=== PATIENT | female | born 1970 | race Caucasian/White ===

== ENCOUNTER → 2018-03-12 | Outpatient (CLI) | payer BC ==
--- NOTE | 2018-03-12 13:39 | RAD ---
Bilateral lower extremity venous ultrasound, 03/12/2018: History: Bilateral leg swelling Duplex evaluation of the deep veins in the lower extremities was performed including grayscale, color-flow and spectral Doppler analysis. The femoral and popliteal veins demonstrate normal compressibility and normal responses to distal augmentation maneuvers. Color imaging of those vessels shows no evidence of intraluminal clot. The visualized deep veins in both calves are patent. IMPRESSION: There is no sonographic evidence of deep vein thrombosis in either lower extremity.
== END | disposition home or self-care (01) ==
LOC: US 12:11
PROVIDERS: ATTEND Nurse Practitioner Family
DX: M79.89 Other specified soft tissue disorders (principal)
CPT/HCPCS: 93970

== ENCOUNTER → 2018-03-25 | Outpatient (CLI) | payer BC ==
--- NOTE | 2018-03-25 10:05 | RAD ---
Right tibia and fibula, 2 views, 03/25/2018: History: Pain after a fall No fracture is identified. There is moderate subcutaneous edema. IMPRESSION: No acute bony abnormality is detected.
== END | disposition home or self-care (01) ==
LOC: PMG 09:02
PROVIDERS: ATTEND Physician Assistant
DX: M79.604 Pain in right leg (principal); R60.0 Localized edema
CPT/HCPCS: 73590

== ENCOUNTER 2019-11-23 15:19 | Emergency (ER) | payer BC ==
[~2019-11-23] VITALS: Ht 167.6 cm; Wt 149.7 kg
[2019-11-23 15:40] VITALS: BP 158/86
--- NOTE | 2019-11-23 16:12 | PHYS DOC ---
Past History Past Medical History: High Cholesterol, Hypertension, Other Additional Past Medical Histor: osteo-Lizzie imperfecta Past Surgical History: Cholecystectomy, Hysterectomy, Tonsillectomy Smoking: Non-smoker Alcohol Use: None Drug Use: None Adult General Chief Complaint Chief Complaint: KNEE INJURY HPI HPI Patient is a 49-year-old female presents complaining of worsening left knee pain since yesterday when she was walking, felt a pop, and had increased pain. She has been having left knee pain for approximately the past 2 months. She has taken no pain medicine for this. She denies any trauma. She does have a history of osteogenesis imperfecta. She has been able to walk with increased pain. Pain is moderate to severe in intensity. No numbness or tingling. No swelling.[] Review of Systems Review of Systems Constitutional: Denies fever or chills [] Eyes: Denies change in visual acuity, redness, or eye pain [] HENT: Denies nasal congestion or sore throat [] Respiratory: Denies cough or shortness of breath [] Cardiovascular: No chest pain or palpitations[] GI: Denies abdominal pain, nausea, vomiting, bloody stools or diarrhea [] : Denies dysuria or hematuria [] Musculoskeletal: Denies back pain, see history of present illness[] Integument: Denies rash or skin lesions [] Neurologic: Denies headache, focal weakness or sensory changes [] Endocrine: Denies polyuria or polydipsia [] All other systems were reviewed and found to be within normal limits, except as documented in this note. Allergies Allergies Allergies Coded Allergies Type Severity Reaction Last Updated Verified Iodinated Contrast Media Allergy Unknown 11/23/19 Yes oseltamivir Allergy Unknown 11/23/19 Yes Physical Exam Physical Exam Constitutional: Well developed, well nourished, no acute distress, non-toxic appearance. [] HENT: Normocephalic, atraumatic, bilateral external ears normal, oropharynx moist, no oral exudates, nose normal. [] Eyes: PERRLA, EOMI, conjunctiva normal, no discharge. [] Neck: Normal range of motion, no tenderness, supple, no stridor. [] Cardiovascular:Heart rate regular rhythm, no murmur [] Lungs & Thorax: Bilateral breath sounds clear to auscultation [] Abdomen: Bowel sounds normal, soft, no tenderness, no masses, no pulsatile masses. [] Skin: Warm, dry, no erythema, no rash. [] Back: No tenderness, no CVA tenderness. [] Extremities: Left knee: There is no significant edema or effusion. Decreased active range of motion from full extension to approximately 90 of flexion, no varus or valgus laxity, diffuse tenderness, no specific joint line tenderness. Negative Francesca, negative anterior and posterior drawer, negative pivot shift, no patellar apprehension. A joint above and a joined below were evaluated and were normal. She is distally neurovascularly intact. The other 3 extremities show: No tenderness, no cyanosis, no clubbing, ROM intact, no edema. [] Neurologic: Alert and oriented X 3, normal motor function, normal sensory function, no focal deficits noted. [] Psychologic: Affect normal, judgement normal, mood normal. [] EKG EKG [] Radiology/Procedures Radiology/Procedures PROCEDURE: KNEE LEFT 3V EXAM: Left knee, 3 views. HISTORY: Pain. Popping. COMPARISON: None. FINDINGS: 3 views of the right knee are obtained. There is minimal medial compartment spurring. There is a small joint effusion. IMPRESSION: 1. Minimal medial compartment osteoarthritis of the left knee. 2. Small left knee effusion.[] Course & Med Decision Making Course & Med Decision Making Pertinent Labs and Imaging studies reviewed. (See chart for details) Emergency department course: Patient arrived, was placed in bed, and tolerated exam well. She was given pain medicine and transported to and from radiology with any complications. After the return of the imaging findings, these were discussed with the patient voiced understanding. All questions were answered. She was discharged in improved condition. Medical decision making: There is no evidence of a fracture or dislocation. No evidence of neurologic or vascular compromise. No evidence of a DVT. [] Dragon Disclaimer Dragon Disclaimer This electronic medical record was generated, in whole or in part, using a voice recognition dictation system. Departure Departure: Impression: Primary Impression: Knee pain, left Disposition: 01 HOME, SELF-CARE Condition: IMPROVED Referrals: MERCEDEZ CONNELLY (PCP) Follow-up in 2 days Patient Instructions: Knee Pain Additional Instructions: Follow-up with your regular doctor in 2 days. Apply warm compresses for 15 minutes at a time, at least 4 times a day to the knee. Return to the ER if worsening pain or any other concerns. Scripts Meloxicam (MELOXICAM) 7.5 Mg Tablet 7.5 MG PO DAILY for PAIN, #20 TAB Prov: STANLEY GUTIERRES DO 11/23/19 Problem Qualifiers Primary Impression: Knee pain, left Chronicity: unspecified Qualified Codes: M25.562 - Pain in left knee STANLEY GUTIERRES DO Nov 23, 2019 16:12
[2019-11-23] MEDS ORDERED: IBUPROFEN 600 MG TABLET. PO ONE (16:15)
--- NOTE | 2019-11-23 16:35 | RAD ---
EXAM: Left knee, 3 views. HISTORY: Pain. Popping. COMPARISON: None. FINDINGS: 3 views of the right knee are obtained. There is minimal medial compartment spurring. There is a small joint effusion. IMPRESSION: 1. Minimal medial compartment osteoarthritis of the left knee. 2. Small left knee effusion. Electronically signed by: Luz Elena Barros MD (11/23/2019 4:32 PM) [facility]
[2019-11-23] MEDS ORDERED: MELO7.5T29 PO (16:41)
== END 2019-11-23 16:50 | disposition home or self-care (01) ==
LOC: ER 15:19
DX: M25.562 Pain in left knee (principal); E78.00 Pure hypercholesterolemia, unspecified; I10 Essential (primary) hypertension; Z91.041 Radiographic dye allergy status; Z88.8 Allergy status to other drugs, medicaments and biological substances; X50.9XXA Other and unspecified overexertion or strenuous movements or postures, initial encounter; Y93.01 Activity, walking, marching and hiking; Y92.89 Other specified places as the place of occurrence of the external cause; Y99.8 Other external cause status
CPT/HCPCS: 73562; 99284

== ENCOUNTER 2020-06-23 18:36 | Emergency (ER) | payer BC ==
[~2020-06-23] VITALS: Ht 167.6 cm; Wt 162.4 kg
[~2020-06-23 18:36] MED LIST: MELO7.5T29 PO
[2020-06-23 18:45] VITALS: BP 156/68
--- NOTE | 2020-06-23 19:29 | RAD ---
EXAM: Right foot 2 views. HISTORY: First toe trauma. COMPARISON: None. FINDINGS: Two views of the right foot are obtained. There is an avulsion fracture along the dorsal base of the first distal phalanx. Other joint spaces and alignment are maintained. There are moderate plantar and small posterior calcaneal spurs. IMPRESSION: 1. Avulsion fracture along the dorsal base of the first distal phalanx. Electronically signed by: Merline Alberto MD (06/23/2020 7:26 PM) [facility]
[2020-06-23] MEDS ORDERED: DIPH,PERTUSS(ACELL),TET VAC/PF 0.5 ML SYRINGE. VAX IM ONE (19:30)
--- NOTE | 2020-06-23 19:31 | PHYS DOC ---
Past History Past Medical History: Diabetes, High Cholesterol, Hypertension, Other Additional Past Medical Histor: osteo-Lizzie imperfecta Past Surgical History: Cholecystectomy, Hysterectomy, Tonsillectomy Smoking: Non-smoker Alcohol Use: None Drug Use: None Adult General Chief Complaint Chief Complaint: TOE PROBLEM HPI HPI Patient is a 42 year old female who presents with right big toe pain. Patient states that last night her toe went under a piece of furniture and she immediately had pain and swelling of the toe. She states that the pain is only significant if she tries to drive or put any weight on it. She denies any other injuries. She did have some bleeding on the bottom of the toenail. She states her toenail has been curved for several years and that it does not appear to look any different than normal. She denies any numbness. Review of Systems Review of Systems General: Denies fever, chills, sweats, fatigue Eyes: Denies drainage, blurred vision, eye redness HENT: Denies rhinorrhea, sore throat, earache Respiratory: Denies cough, shortness of breath, wheezing Cardiac: Denies edema, palpitations, chest pain GI: Denies abdominal pain, Nausea, vomiting MSK: Denies back pain, neck pain Skin: Denies rash, jaundice Neuro: Denies headache, dizziness Psychiatric: Denies SI/HI Current Medications Current Medications Current Medications Medications (Trade) Dose Ordered Sig/Nichole Start Time Stop Time Status Last Admin Dose Admin Diphtheria/ Pertussis/Tetanus Vacc (ADACEL TDap SYRINGE) 0.5 ml ONCE ONCE 06/23/20 19:30 06/23/20 19:31 06/23/20 19:16 0.5 ML Allergies Allergies Allergies Coded Allergies Type Severity Reaction Last Updated Verified Iodinated Contrast Media Allergy Intermediate 06/23/20 Yes oseltamivir Allergy Intermediate 06/23/20 Yes Physical Exam Physical Exam General: Awake, alert, NAD. Well Nourished, well hydrated. Cooperative HEENT: Atraumatic, EOMI, PERRL, airway patent, moist oral mucosa Neck: Supple, trachea midline Respiratory: CTA bilaterally, normal effort, no wheezing/crackles CV: RRR, no murmur, cap refill <2 GI: Soft, nondistended, nontender, no masses MSK: No obvious deformities. Right large toe with dorsal bruising and minimal swelling, toenail curved chronically but no subungual hematoma Skin: Warm, dry, intact Neuro: A&O x3, speech NL, sensory and motor grossly intact, no focal deficits Psych: Normal affect, normal mood, not suicidal or homicidal Current Patient Data Vital Signs Vital Signs Date Time Temp Pulse Resp B/P (MAP) Pulse Ox O2 Delivery O2 Flow Rate FiO2 06/23/20 18:45 97.9 92 20 156/68 (97) 96 Room Air EKG EKG [] Radiology/Procedures Radiology/Procedures [] Course & Med Decision Making Course & Med Decision Making Pertinent Labs and Imaging studies reviewed. (See chart for details) Patient is a 50-year-old female who presents to the emergency room complaining of toe pain after an injury last night. She does have some minor swelling. I have discussed with her that it is possible that she could lose the toenail, however there is no hematoma underneath the toenail and it is fully attached at this time. We will leave the toenail in place. X-ray was ordered and was normal. Patient's test results and vitals while in the ED were fully reviewed and discussed with the patient. Patient is stable and at this time does not need admission to the hospital. We have discussed strict return precautions and the importance of following up with their Primary Care Physician. Patient stated understanding and was given an opportunity to ask any questions. Patient is in agreement with plan. Dragon Disclaimer Dragon Disclaimer This electronic medical record was generated, in whole or in part, using a voice recognition dictation system. Departure Departure: Impression: Primary Impression: Toe pain Disposition: HOME/RESIDENCE PRIOR TO ADM Condition: STABLE Referrals: MERCEDEZ CONNELLY (PCP) Patient Instructions: Fingernail or Toenail Loss, Toe Injuries and Amputations Justification of Admission: Justification of Admission: Justification of Admission Dx: RAMO Mcdaniel MD Jun 23, 2020 19:31
== END 2020-06-23 20:22 | disposition home or self-care (01) ==
LOC: ER 18:36
DX: M79.674 Pain in right toe(s) (principal); R22.41 Localized swelling, mass and lump, right lower limb; E11.9 Type 2 diabetes mellitus without complications; E78.00 Pure hypercholesterolemia, unspecified; I10 Essential (primary) hypertension; Z88.8 Allergy status to other drugs, medicaments and biological substances; Z91.041 Radiographic dye allergy status
CPT/HCPCS: 73620; 90471; 90715; 99283

== ENCOUNTER 2020-10-17 03:52 | Emergency (ER) | payer BC ==
[~2020-10-17] VITALS: Ht 167.6 cm; Wt 164.0 kg
--- NOTE | 2020-10-17 04:07 | PHYS DOC ---
Past History Past Medical History: Diabetes, High Cholesterol, Hypertension, Other Additional Past Medical Histor: osteo-Lizzie imperfecta Past Surgical History: Cholecystectomy, Hysterectomy, Tonsillectomy Smoking: Non-smoker Alcohol Use: None Drug Use: None General Adult EDM: Chief Complaint: HYPERGLYCEMIA HPI: HPI: 60-year-old female presents with hyperglycemia. She woke up at 1:00 in the morning decided to check her blood sugar. It was 500. Patient checked it again about 45 minutes ago and her meter said high. She knew this was not good and decided come to the emergency room. She is currently on Trulicity injections once weekly. Her blood sugars have been running in the mid 300s before today. She states feeling generally well other than the elevated sugar. She denies fever or chills. She is not currently on any insulin. Review of Systems: Review of Systems: Constitutional: Denies fever or chills. Hyperglycemia. Eyes: Denies change in visual acuity HENT: Denies nasal congestion or sore throat Respiratory: Denies cough or shortness of breath Cardiovascular: Denies chest pain or edema GI: Denies abdominal pain, nausea, vomiting, bloody stools or diarrhea : Denies dysuria Musculoskeletal: Denies back pain or joint pain Integument: Denies rash Neurologic: Denies headache, focal weakness or sensory changes Endocrine: Denies polyuria or polydipsia Lymphatic: Denies swollen glands Psychiatric: Denies depression or anxiety Allergies: Allergies: Allergies Coded Allergies Type Severity Reaction Last Updated Verified Iodinated Contrast Media Allergy Intermediate 06/23/20 Yes oseltamivir Allergy Intermediate 06/23/20 Yes Physical Exam: PE: Constitutional: Well developed, well nourished, morbidly obese, no acute distress, non-toxic appearance. [] HENT: Normocephalic, atraumatic, bilateral external ears normal, oropharynx moist, no oral exudates, nose normal. [] Eyes: PERRLA, EOMI, conjunctiva normal, no discharge. [] Neck: Normal range of motion, no tenderness, supple, no stridor. [] Cardiovascular: Heart rate regular rhythm, no murmur [] Lungs & Thorax: Bilateral breath sounds clear to auscultation [] Abdomen: Bowel sounds normal, soft, no tenderness, no masses, no pulsatile masses. [] Skin: Warm, dry, no erythema, no rash. [] Back: No tenderness, no CVA tenderness. [] Extremities: No tenderness, no cyanosis, no clubbing, ROM intact, no edema. [] Neurologic: Alert and oriented X 3, normal motor function, normal sensory function, no focal deficits noted. [] Psychologic: Affect normal, judgement normal, mood normal. [] Current Patient Data: Labs: Laboratory Tests Test 10/17/20 03:59 Glucose (Fingerstick) 483 mg/dL (70-99) H EKG: EKG: [] Radiology/Procedures: Radiology/Procedures: [] Heart Score: Risk Factors: Risk Factors: DM, Current or recent (<one month) smoker, HTN, HLP, family history of CAD, obesity. Risk Scores: Score 0 - 3: 2.5% MACE over next 6 weeks - Discharge Home Score 4 - 6: 20.3% MACE over next 6 weeks - Admit for Clinical Observation Score 7 - 10: 72.7% MACE over next 6 weeks - Early Invasive Strategies Course & Med Decision Making: Course & Med Decision Making Pertinent Labs and Imaging studies reviewed. (See chart for details) The patient's blood sugar is over 500. I have ordered 10 units of regular insulin and a liter of normal saline. Her albumin is low. Her other labs are essentially unremarkable. Her repeat blood sugar is 258. Her anion gap is normal. I believe patient is safe to discharge at this time. She has appoint with her doctor later today. Baljinder Disclaimer: Baljinder Disclaimer: This electronic medical record was generated, in whole or in part, using a voice recognition dictation system. Departure Departure: Impression: Primary Impression: Hyperglycemia due to type 2 diabetes mellitus Disposition: 01 DC HOME SELF CARE/HOMELESS Condition: IMPROVED Referrals: MERCEDEZ CONNELLY (PCP) Patient Instructions: Hyperglycemia, [id number] YE BARNETT DO Oct 17, 2020 04:07
[2020-10-17] MEDS ORDERED: INSULIN REGULAR 100 UNIT/ML 3ML VIAL. IV ONE (04:15)
[2020-10-17] MEDS ORDERED: IV NORMAL SALINE 1,000ML 1,000 ML IV ONE (04:15)
[2020-10-17 04:51] LABS: BACTERIA,URINE 0 /HPF (0-FEW); BILIRUBIN,URINE NEG (NEG); CLARITY,URINE CLEAR; COLOR,URINE YELLOW; GLUCOSE,URINE >=1000 mg/dL (NEG); NITRITE,URINE NEG (NEG); RBC,URINE OCC /HPF (0-2); SQUAMOUS EPITHELIAL CELL,UR OCC /LPF; UROBILINOGEN,URINE 0.2 mg/dL (0.2 mg/dL)
[2020-10-17 04:53] LABS: BASO # 0.1 x10^3/uL (0.0-0.2); BASO % 2 % (0-3); EOS # 0.1 x10^3/uL (0.0-0.7); EOS % 2 % (0-3); HEMATOCRIT 39.1 % (36.0-47.0); HEMOGLOBIN 12.4 g/dL (12.0-15.5); LYMPH # 1.9 x10^3/uL (1.0-4.8); LYMPH % 32 % (24-48); MEAN CORPUSCULAR HEMOGLOBIN 29 pg (25-35); MEAN CORPUSCULAR HGB CONC 32 g/dL (31-37); MEAN CORPUSCULAR VOLUME 90 fL (79-100); MONO # 0.4 x10^3/uL (0.0-1.1); MONO % 6 % (0-9); NEUT # 3.5 x10^3uL (1.8-7.7); NEUT % 58 % (31-73); PLATELET COUNT 282 x10^3/uL (140-400); RED BLOOD COUNT 4.34 x10^6/uL (3.50-5.40); RED CELL DISTRIBUTION WIDTH 14.8 % (11.5-14.5)
[2020-10-17 05:00] LABS: ALBUMIN 2.8 g/dL (3.4-5.0); ALBUMIN/GLOBULIN RATIO 0.6 (1.0-1.7); CREATININE 1.1 mg/dL (0.6-1.0); POTASSIUM 4.7 mmol/L (3.5-5.1); TOTAL BILIRUBIN 0.2 mg/dL (0.2-1.0); TOTAL PROTEIN 7.8 g/dL (6.4-8.2)
[2020-10-17 06:18] VITALS: BP 104/49
== END 2020-10-17 06:18 | disposition home or self-care (01) ==
LOC: ER 03:52
DX: E11.65 Type 2 diabetes mellitus with hyperglycemia (principal); E78.00 Pure hypercholesterolemia, unspecified; I10 Essential (primary) hypertension; Z91.041 Radiographic dye allergy status; Z88.8 Allergy status to other drugs, medicaments and biological substances
CPT/HCPCS: 36415; 80053; 81001; 82947; 85025; 96361; 96374; 99285; J1815; J7030

== ENCOUNTER → 2020-10-19 | Outpatient (CLI) | payer BC ==
[2020-10-17 06:18] VITALS: BP 104/49
--- NOTE | 2020-10-19 16:27 | RAD ---
LOWER EXTREMITY DUPLEX ARTERY ULTRASOUND Indication: Reason: PVD, HTN, DM / Spl. Instructions: / History: Comparison: Right foot x-rays of 06/23/2020. Procedure: Arterial 2D and duplex images are obtained of the lower extremity arteries. Technologist reports exam was technically challenging due to patient large body habitus. Findings: Normal triphasic waveforms are present in the common femoral artery, superficial femoral artery, popliteal artery, anterior tibial artery, posterior tibial artery and dorsalis pedis artery. IMPRESSION: No hemodynamically significant stenosis. Electronically signed by: Guanakito Oconnor MD (10/19/2020 4:24 PM) [id number]
== END ==
LOC: US 11:11
PROVIDERS: ATTEND Physician Assistant
DX: I73.9 Peripheral vascular disease, unspecified (principal); I10 Essential (primary) hypertension
CPT/HCPCS: 93925

== ENCOUNTER 2020-10-29 15:26 | Emergency (ER) | payer BC ==
[~2020-10-29] VITALS: Ht 167.6 cm; Wt 164.0 kg
--- NOTE | 2020-10-29 16:01 | PHYS DOC ---
Past History Past Medical History: Diabetes, High Cholesterol, Hypertension, Other Additional Past Medical Histor: osteo-Lizzie imperfecta Past Surgical History: Cholecystectomy, Hysterectomy, Tonsillectomy Smoking: Non-smoker Alcohol Use: None Drug Use: None Adult General Chief Complaint Chief Complaint: BLOOD SUGAR PROBLEM HPI HPI Patient is a 50yo female presenting for FSBG issues. She takes Invokana and Trul icity daily, has had no major medications changes or illnesses. She checked her FSBG ~2pm today awith reading of 562 which scared her so she reported to our ER for evaluation. She is asymptomatic. States her last HA1C ~8%, has never been in DKA or admitted to the hospital for hyperglycemia Review of Systems Review of Systems Fourteen body systems of review of systems have been reviewed. See HPI for pertinent positives and negative responses, other louis all other systems are negative, non-pertinent or non-contributory Allergies Allergies Allergies Coded Allergies Type Severity Reaction Last Updated Verified Iodinated Contrast Media Allergy Intermediate 06/23/20 Yes oseltamivir Allergy Intermediate 06/23/20 Yes Physical Exam Physical Exam Constitutional: Well developed, well nourished, no acute distress, non-toxic appearance. HENT: Normocephalic, atraumatic, bilateral external ears normal, oropharynx moist, no oral exudates, nose normal. Eyes: PERRLA, EOMI, conjunctiva normal, no discharge. Neck: Normal range of motion, no tenderness, supple, no stridor. Cardiovascular: Heart rate regular, sinus rhythm, no murmurs rubs or gallops Lungs & Thorax: Bilateral breath sounds clear to auscultation Abdomen: Bowel sounds normal, soft, no tenderness, no masses, no pulsatile masses. Nonsurgical abdomen, no peritoneal signs Skin: Warm, dry, no erythema, no rash. Back: No tenderness, no CVA tenderness. Extremities: No tenderness, no cyanosis, no clubbing, ROM intact, no edema. Neurologic: Alert and oriented X 3, grossly normal motor & sensory function, no focal deficits noted. Psychologic: Affect normal, judgement normal, mood normal. Current Patient Data Vital Signs Vital Signs Date Time Temp Pulse Resp B/P (MAP) Pulse Ox O2 Delivery O2 Flow Rate FiO2 10/29/20 16:44 78 16 149/85 (106) 98 Room Air 10/29/20 15:55 97.9 Lab Results Laboratory Tests Test 10/29/20 15:55 10/29/20 16:34 Glucose (Fingerstick) 155 mg/dL (70-99) 177 mg/dL (70-99) EKG EKG [] Radiology/Procedures Radiology/Procedures [] Heart Score Risk Factors: Risk Factors: DM, Current or recent (<one month) smoker, HTN, HLP, family history of CAD, obesity. Risk Scores: Risk Factors: DM, Current or recent (<one month) smoker, HTN, HLP, family history of CAD, obesity. Course & Med Decision Making Course & Med Decision Making Patients presentation most consistent with well-controlled FSBG Given Exam, History, and Workup I have low suspicion for an emergent precipitating factor of this reported hyperglycemic state such as atypical WI, acute abdomen, or other serious bacterial illness. Patient is Type 2 Diabetic with changes in medication regimen/adherence. Re-evaluation: Patients serum glucose remained <200 at this time. Asymptomatic throughout entirety of ED visit Disposition: Discharge home with home DM med regimen and prompt PCP follow up instructions. Dragon Disclaimer Dragon Disclaimer This electronic medical record was generated, in whole or in part, using a voice recognition dictation system. Departure Departure: Impression: Primary Impression: Hyperglycemia due to type 2 diabetes mellitus Disposition: 01 DC HOME SELF CARE/HOMELESS Condition: STABLE Referrals: MERCEDEZ CONNELLY (PCP) Patient Instructions: Blood Sugar Monitoring, Adult BELGICA ATKINSON DO Oct 29, 2020 16:01
[2020-10-29 16:44] VITALS: BP 149/85
== END 2020-10-29 16:47 | disposition home or self-care (01) ==
LOC: ER 15:26
DX: E11.65 Type 2 diabetes mellitus with hyperglycemia (principal); E78.00 Pure hypercholesterolemia, unspecified; I10 Essential (primary) hypertension; Z90.710 Acquired absence of both cervix and uterus; Z90.49 Acquired absence of other specified parts of digestive tract; Z98.890 Other specified postprocedural states; Z91.041 Radiographic dye allergy status; Z88.8 Allergy status to other drugs, medicaments and biological substances
CPT/HCPCS: 82947; 99283

== ENCOUNTER 2020-11-08 00:45 | Emergency (ER) | payer BC ==
[~2020-11-08] VITALS: Ht 167.6 cm; Wt 165.0 kg
[2020-11-08 00:45] VITALS: BP 153/91
--- NOTE | 2020-11-08 00:51 | PHYS DOC ---
Past History Past Medical History: Diabetes, High Cholesterol, Hypertension, Other Additional Past Medical Histor: osteo-Lizzie imperfecta Past Surgical History: Cholecystectomy, Hysterectomy, Tonsillectomy Smoking: Non-smoker Alcohol Use: None Drug Use: None General Adult EDM: Chief Complaint: SKIN RASH/ABSCESS HPI: HPI: "..I got this rash down here.. under my belly flap...it is worse on the right.. ..I ve had it for weeks if no months.. but it more tender tonight..." Patient is a 50 year old female who presents with above hx and complaints rash on underside of pannus. Rash is more prevalent on the right side of the pannus. Patient has had the rash for months. Patient has past medical history of poorly controlled diabetes, hypercholesterol, hypertension, osteogenesis imperfecta, morbid obesity and noncompliance.. Patient has been not been checking her sugars regularly. Patient has not been allowing area under the pannus to dry. Pt. follows with Maribel. Patient has had frequent ED evaluations for a multitude of problems. Review of Systems: Review of Systems: Constitutional: Denies fever or chills Eyes: Denies change in visual acuity HENT: Denies nasal congestion or sore throat Respiratory: Denies cough or shortness of breath Cardiovascular: Denies chest pain or edema GI: Denies abdominal pain, nausea, vomiting, bloody stools or diarrhea : Denies dysuria Musculoskeletal: Denies back pain or joint pain Integument: Complains of rash under her pannus Neurologic: Denies headache, focal weakness or sensory changes Endocrine: Denies polyuria or polydipsia Lymphatic: Denies swollen glands Psychiatric: Denies depression or anxiety Family History: Family History: Diabetes and hypertension Current Medications: Current Meds: See nursing for home meds Allergies: Allergies: Allergies Coded Allergies Type Severity Reaction Last Updated Verified Iodinated Contrast Media Allergy Intermediate 06/23/20 Yes oseltamivir Allergy Intermediate 06/23/20 Yes Iodine and Iodide Containing Produc Allergy Unknown 10/29/20 Yes Physical Exam: PE: Constitutional: no acute distress, non-toxic appearance. [] HENT: Normocephalic, atraumatic, bilateral external ears normal, oropharynx moist, no oral exudates, nose normal. [] Eyes: PERRLA, EOMI, conjunctiva normal, no discharge. [] Neck: Normal range of motion, no tenderness, supple, no stridor. [] Cardiovascular:Heart rate regular rhythm, no murmur [] Lungs & Thorax: Bilateral breath sounds equal apex with decreased bilateral basilar breath sounds on auscultation [] Abdomen: Bowel sounds normal, soft, no tenderness, no masses, no pulsatile masses. Morbidly obese. Under pannus has rash which appears to be fungal or Ca ndida, rashes worse on the right. Does have some erythema in her groin creases. Skin: Warm, dry, no erythema, rash under pannus [] Back: No tenderness, no CVA tenderness. [] Extremities: No tenderness, no cyanosis, no clubbing, ROM intact, bilateral ankle edema. [] Neurologic: Alert and oriented X 3, normal motor function, normal sensory function, no focal deficits noted. [] Psychologic: Affect anxious , judgement normal, mood normal. [] EKG: EKG: [] Radiology/Procedures: Radiology/Procedures: [] Heart Score: Risk Factors: Risk Factors: DM, Current or recent (<one month) smoker, HTN, HLP, family history of CAD, obesity. Risk Scores: Score 0 - 3: 2.5% MACE over next 6 weeks - Discharge Home Score 4 - 6: 20.3% MACE over next 6 weeks - Admit for Clinical Observation Score 7 - 10: 72.7% MACE over next 6 weeks - Early Invasive Strategies Course & Med Decision Making: Course & Med Decision Making Pertinent Labs and Imaging studies reviewed. (See chart for details) Patient to bathe 4 times a day in Epson salts or salt water. May use spray to irrigate under pannus. After irrigation must allow the area to dry completely. Then apply [id number] nystatin cream. Patient take Keflex 500 mg 3 times a day. Patient to take blood glucose levels 4 times a day before meals. Patient keep a record and show this to her primary care. Patient to show Maribel the rash. Advised patient if she does not get area dry in between washing or irrigation, this area will not heal. Must follow-up. Impression: 1. Cellulitis suspect Radha 2. History of diabetes 3. Hx of hypertension 4. Morbid Obesity. [] Baljinder Disclaimer: Baljinder Disclaimer: This electronic medical record was generated, in whole or in part, using a voice recognition dictation system. Departure Departure: Referrals: MERCEDEZ CONNELLY (PCP) Scripts Cephalexin (KEFLEX) 500 Mg Capsule 500 MG PO TID for cellulitis for 10 Days, BOTTLE Prov: ETELVINA MORRISON MD 11/08/20 Fluconazole (DIFLUCAN) 100 Mg Tablet 100 MG PO DAILY for rash for 30 Days, #30 TAB Prov: ETELVINA MORRISON MD 11/08/20 Dragon Disclaimer This chart was dictated in whole or in part using Voice Recognition software in a busy, high-work load, and often noisy Emergency Department environment. It may contain unintended and wholly unrecognized errors or omissions. Dragon Disclaimer This chart was dictated in whole or in part using Voice Recognition software in a busy, high-work load, and often noisy Emergency Department environment. It may contain unintended and wholly unrecognized errors or omissions. ETELVINA MORRISON MD Nov 08, 2020 00:51
[2020-11-08] MEDS ORDERED: CEPH-264 PO (01:14)
[2020-11-08] MEDS ORDERED: FLUC100T7 PO (01:14)
[2020-11-08] MEDS ORDERED: FLUCONAZOLE 100 MG TABLET. PO ONE (01:15)
[2020-11-08] MEDS ORDERED: CEPHALEXIN 250 MG CAPSULE PO ONE (01:15)
== END 2020-11-08 01:30 | disposition home or self-care (01) ==
LOC: ER 00:45
DX: L03.818 Cellulitis of other sites (principal); E11.9 Type 2 diabetes mellitus without complications; E78.00 Pure hypercholesterolemia, unspecified; I10 Essential (primary) hypertension; E66.01 Morbid (severe) obesity due to excess calories; Z68.43 Body mass index [BMI] 50.0-59.9, adult; Z90.49 Acquired absence of other specified parts of digestive tract; Z90.710 Acquired absence of both cervix and uterus; Z88.8 Allergy status to other drugs, medicaments and biological substances
CPT/HCPCS: 99283

== ENCOUNTER → 2021-05-28 | Outpatient (CLI) | payer BC ==
[~2021-05-28] MED LIST changes: +CEPH-264 PO; +FLUC100T7 PO
--- NOTE | 2021-05-28 14:26 | RAD ---
EXAM: Right knee, 2 views. HISTORY: Pain. COMPARISON: None. FINDINGS: 2 views of the right knee are obtained. There is mild medial compartment joint space narrow ing and spurring. There is no fracture, dislocation or subluxation. There is no severe joint effusion . IMPRESSION: Mild medial compartment osteoarthritis of the right knee. Electronically signed by: Luz Elena Barros MD (05/28/2021 2:24 PM) [id number]
== END ==
LOC: RAD 13:57
PROVIDERS: ATTEND Physician Assistant
DX: M17.11 Unilateral primary osteoarthritis, right knee (principal); M76.891 Other specified enthesopathies of right lower limb, excluding foot
CPT/HCPCS: 73560

== ENCOUNTER → 2021-06-07 | Outpatient (CLI) | payer BC ==
--- NOTE | 2021-06-21 18:03 | RAD ---
DATE: 06/07/2021 EXAM: DIGITAL SCREEN BILAT W/CAD HISTORY: Screening COMPARISON: 05/22/2015 and 12/22/2017 This study was interpreted with the benefit of Computerized Aided Detection (CAD). Breast Density: FATTY The breast parenchyma is primarily fatty replaced. Breast parenchyma level density A. FINDINGS: No mass, suspicious calcification, or architectural distortion in either breast. IMPRESSION: No evidence of malignancy. BI-RADS CATEGORY: 1 NEGATIVE RECOMMENDED FOLLOW-UP: 12M 12 MONTH FOLLOW-UP PQRS compliance statement: Patient information was entered into a reminder system with a target due date for the next mammogram. Mammography is a sensitive method for finding small breast cancers, but it does not detect them all and is not a substitute for careful clinical examination. A negative mammogram does not negate a clinically suspicious finding and should not result in delay in biopsying a clinically suspicious abnormality. "Our facility is accredited by the [employer] Mammography Program."
== END ==
LOC: MAMMO 13:56
PROVIDERS: ATTEND Physician Assistant
DX: Z12.31 Encounter for screening mammogram for malignant neoplasm of breast (principal)
CPT/HCPCS: 77067

== ENCOUNTER 2021-08-22 13:21 | Emergency (ER) | payer BC ==
[~2021-08-22] VITALS: Ht 167.6 cm; Wt 165.0 kg
[2021-08-22 13:22] VITALS: BP 163/87
--- NOTE | 2021-08-22 13:32 | PHYS DOC ---
Past History Past Medical History: Diabetes, High Cholesterol, Hypertension, Other Additional Past Medical Histor: osteo-Lizzie imperfecta Past Surgical History: Cholecystectomy, Hysterectomy, Tonsillectomy Smoking: Non-smoker Alcohol Use: None Drug Use: None General Adult EDM: Chief Complaint: NAUSEA/VOMITING/DIARRHEA HPI: HPI: Patient is a 51-year-old female coming in via EMS for nausea. Patient states she has had some nausea for the past couple days and vomited once yesterday that she describes as "phlegm". No vomiting today. Patient had just been infected from her apartment prior to calling EMS. Patient states that she is on a transportation does not go to work, and therefore has not been able to afford her medications. Patient has a history of hypertension diabetes. Has been ta barry her other medications but has been out of her Trulicity. EMS blood glucose was 184, patient states usually runs around 120s. Patient states she went to get checked because she felt like her blood sugar was "out of whack." Has had occasional nonproductive cough. Denies any fevers or diarrhea. Patient states she has urinary incontinence but denies any frequency or other changes in urination. Has had both of her COVID-19 vaccines. Patient states she also usually sleeps with a CPAP but has not for the past 2 to 3 weeks. Review of Systems: Review of Systems: All other systems within normal limits except for as noted in the HPI Allergies: Allergies: Allergies Coded Allergies Type Severity Reaction Last Updated Verified Iodinated Contrast Media Allergy Intermediate 06/23/20 Yes oseltamivir Allergy Intermediate 06/23/20 Yes Iodine and Iodide Containing Produc Allergy Unknown 10/29/20 Yes Physical Exam: PE: Constitutional: Well developed, well nourished, no acute distress, non-toxic appearance. Morbidly obese [] HENT: Normocephalic, atraumatic, bilateral external ears normal, nose normal. [] Eyes: PERRLA, conjunctiva normal, no discharge. [] Neck: No rigidity, supple, no stridor. [] Cardiovascular: Regular rate and rhythm, brisk cap refill [] Lungs & Thorax: Non labored symmetric respirations, no tachypnea or respiratory distress [] Abdomen: Soft, nondistended. Skin: Warm, dry, no erythema, no rash. [] Back: Unremarkable Extremities: No deformities, range of motion grossly intact, no lower extremity edema [] Neurologic: Alert and oriented X 3, no focal deficits noted. [] Psychologic: Affect normal, judgement normal, tearful EKG: EKG: Sinus rhythm, heart rate 86/min, normal axis, no ST elevation or depression, no ectopy. [] Radiology/Procedures: Radiology/Procedures: [] Heart Score: C/O Chest Pain: No Risk Factors: Risk Factors: DM, Current or recent (<one month) smoker, HTN, HLP, family history of CAD, obesity. Risk Scores: Score 0 - 3: 2.5% MACE over next 6 weeks - Discharge Home Score 4 - 6: 20.3% MACE over next 6 weeks - Admit for Clinical Observation Score 7 - 10: 72.7% MACE over next 6 weeks - Early Invasive Strategies Course & Med Decision Making: Course & Med Decision Making Pertinent Labs and Imaging studies reviewed. (See chart for details) [] Dragon Disclaimer: Dragon Disclaimer: This electronic medical record was generated, in whole or in part, using a voice recognition dictation system. Departure Departure: Impression: Primary Impression: Nausea Additional Impression: Hyperglycemia Disposition: HOME / SELF CARE / HOMELESS Condition: STABLE Referrals: MERCEDEZ CONNELLY (PCP) ORALIA NEWSOME MD Aug 22, 2021 13:32
[2021-08-22] MEDS ORDERED: ONDANSETRON ODT 4 MG TAB.RAPDIS PO ONE (13:45)
--- NOTE | 2021-08-22 13:50 | EKG ---
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
[2021-08-22 14:03] LABS: BASO # 0.1 x10^3/uL (0.0-0.2); BASO % 1 % (0-3); EOS # 0.2 x10^3/uL (0.0-0.7); EOS % 3 % (0-3); HEMATOCRIT 40.8 % (36.0-47.0); HEMOGLOBIN 13.2 g/dL (12.0-15.5); LYMPH # 2.2 x10^3/uL (1.0-4.8); LYMPH % 31 % (24-48); MEAN CORPUSCULAR HEMOGLOBIN 29 pg (25-35); MEAN CORPUSCULAR HGB CONC 32 g/dL (31-37); MEAN CORPUSCULAR VOLUME 90 fL (79-100); MONO # 0.4 x10^3/uL (0.0-1.1); MONO % 5 % (0-9); NEUT # 4.3 x10^3uL (1.8-7.7); NEUT % 61 % (31-73); PLATELET COUNT 245 x10^3/uL (140-400); RED BLOOD COUNT 4.52 x10^6/uL (3.50-5.40); RED CELL DISTRIBUTION WIDTH 14.1 % (11.5-14.5); WHITE BLOOD COUNT 7.1 x10^3/uL (4.0-11.0)
[2021-08-22 14:11] LABS: CALCIUM 9.1 mg/dL (8.5-10.1); CREATININE 0.9 mg/dL (0.6-1.0); GFR 66.5
[2021-08-22 14:24] LABS: ALBUMIN 3.2 g/dL (3.4-5.0); ALBUMIN/GLOBULIN RATIO 0.8 (1.0-1.7); TOTAL BILIRUBIN 0.5 mg/dL (0.2-1.0); TOTAL PROTEIN 7.3 g/dL (6.4-8.2)
[2021-08-22 15:50] LABS: BARBITURATES NEG (NEG); BENZODIAZEPINES NEG (NEG); CANNABINOIDS NEG (NEG); COCAINE NEG (NEG); METHADONE NEG (NEG); OPIATES NEG (NEG); PHENCYCLIDINE NEG (NEG)
[2021-08-22 15:52] LABS: BACTERIA,URINE 0 /HPF (0-FEW); BILIRUBIN,URINE NEG (NEG); CLARITY,URINE HAZY; COLOR,URINE YELLOW; GLUCOSE,URINE 500 mg/dL (NEG); NITRITE,URINE NEG (NEG); RBC,URINE 0 /HPF (0-2); SQUAMOUS EPITHELIAL CELL,UR OCC /LPF; UROBILINOGEN,URINE 0.2 mg/dL (0.2 mg/dL); WBC,URINE OCC /HPF (0-4); YEAST,URINE PRESENT /HPF
[2021-08-22 16:06] LABS: AMPHETAMINE/METHAMPHETAMINE NEG (NEG)
== END 2021-08-22 17:19 | disposition home or self-care (01) ==
LOC: ER 13:21
DX: E11.65 Type 2 diabetes mellitus with hyperglycemia (principal); R11.2 Nausea with vomiting, unspecified; E78.00 Pure hypercholesterolemia, unspecified; I10 Essential (primary) hypertension; Z91.041 Radiographic dye allergy status; Z88.8 Allergy status to other drugs, medicaments and biological substances
CPT/HCPCS: 36415; 80053; 80307; 81001; 83880; 84484; 85025; 93005; 99283; Q0162; 99284

== ENCOUNTER 2021-12-01 02:57 | Emergency (ER) | payer BC ==
[~2021-12-01] VITALS: Ht 167.6 cm; Wt 165.0 kg
[2021-12-01 03:00] VITALS: BP 120/77
[2021-12-01] MEDS ORDERED: SERT50TA PO (03:25)
[2021-12-01] MEDS ORDERED: ATOR20TA58 PO (03:25)
[2021-12-01] MEDS ORDERED: CHOL10004 PO (03:25)
[2021-12-01] MEDS ORDERED: LOSA100T14 PO (03:25)
[2021-12-01] MEDS ORDERED: GLIM4TAB8 PO (03:25)
[2021-12-01] MEDS ORDERED: MELO15TA23 PO (03:25)
[2021-12-01] MEDS ORDERED: PIOG30TA41 PO (03:25)
[2021-12-01] MEDS ORDERED: DULA3PEN SQ (03:25)
[2021-12-01 04:31] LABS: BASO % 1 % (0-3); EOS % 0 % (0-3); HEMOGLOBIN 11.3 g/dL (12.0-15.5); LYMPH # 0.8 x10^3/uL (1.0-4.8); LYMPH % 15 % (24-48); MEAN CORPUSCULAR HEMOGLOBIN 28 pg (25-35); MEAN CORPUSCULAR HGB CONC 32 g/dL (31-37); MEAN CORPUSCULAR VOLUME 87 fL (79-100); MONO # 0.3 x10^3/uL (0.0-1.1); MONO % 6 % (0-9); NEUT # 4.2 x10^3uL (1.8-7.7); NEUT % 78 % (31-73); PLATELET COUNT 208 x10^3/uL (140-400); RED BLOOD COUNT 4.04 x10^6/uL (3.50-5.40); RED CELL DISTRIBUTION WIDTH 14.7 % (11.5-14.5); WHITE BLOOD COUNT 5.4 x10^3/uL (4.0-11.0)
[2021-12-01 04:44] LABS: CALCIUM 8.4 mg/dL (8.5-10.1); CREATININE 0.9 mg/dL (0.6-1.0); GFR 66.5; POTASSIUM 3.9 mmol/L (3.5-5.1)
[2021-12-01] MEDS ORDERED: ONDANSETRON PF 4 MG/2 ML VIAL. IVP ONE (04:45)
--- NOTE | 2021-12-01 04:45 | RAD ---
EXAM: AP View of the chest DATE: 12/01/2021 3:55 AM INDICATION: Reason: SOB / Spl. Instructions: / History: COMPARISON: No Prior FINDINGS/ IMPRESSION: Mild cardiomegaly. Parenchymal opacities peripheral right lower lung and lung bases likely consolidative process such as pneumonia. Imaging followed to resolution is recommended. No pleural effusion or pneumothorax. Electronically signed by: Mike Ruvalcaba MD (12/01/2021 4:43 AM) SANDRO
[2021-12-01 04:50] LABS: ALBUMIN 3.2 g/dL (3.4-5.0); ALBUMIN/GLOBULIN RATIO 0.6 (1.0-1.7); TOTAL BILIRUBIN 0.9 mg/dL (0.2-1.0); TOTAL PROTEIN 8.2 g/dL (6.4-8.2)
--- NOTE | 2021-12-01 04:53 | PHYS DOC ---
Past History Past Medical History: Diabetes, High Cholesterol, Hypertension, Other Additional Past Medical Histor: osteo-Lizzie imperfecta; hypocalcemia Past Surgical History: Cholecystectomy, Hysterectomy, Tonsillectomy Smoking: Non-smoker Alcohol Use: None Drug Use: None General Adult EDM: Chief Complaint: SHORTNESS OF BREATH HPI: HPI: 51-year-old female presents with shortness of breath, body aches, fatigue. She has had the symptoms for 3 days. She has had borderline fever of 100.3. She is feeling worse tonight than yesterday so she decided come in for evaluation. Denies chest pain or diaphoresis. She is vaccinated against COVID-19 x3. Review of Systems: Review of Systems: Constitutional: Denies fever or chills. Body aches, fatigue. Eyes: Denies change in visual acuity HENT: Denies nasal congestion or sore throat Respiratory: Cough with shortness of breath Cardiovascular: Denies chest pain or edema GI: Denies abdominal pain, nausea, vomiting, bloody stools or diarrhea : Denies dysuria Musculoskeletal: Denies back pain or joint pain Integument: Denies rash Neurologic: Denies headache, focal weakness or sensory changes Endocrine: Denies polyuria or polydipsia Lymphatic: Denies swollen glands Psychiatric: Denies depression or anxiety Current Medications: Current Meds: Current Medications Medications (Trade) Dose Ordered Sig/Nichole Start Time Stop Time Status Last Admin Dose Admin Ondansetron HCl (Zofran) 4 mg 1X ONCE 12/01/21 04:45 12/01/21 04:50 DC 12/01/21 04:43 4 MG Allergies: Allergies: Allergies Coded Allergies Type Severity Reaction Last Updated Verified Iodinated Contrast Media Allergy Intermediate 12/01/21 Yes Iodine and Iodide Containing Produc Allergy Intermediate 12/01/21 Yes oseltamivir Allergy Intermediate 12/01/21 Yes Physical Exam: PE: Constitutional: Well developed, well nourished, morbidly obese, no acute distress, non-toxic appearance. [] HENT: Normocephalic, atraumatic, bilateral external ears normal, oropharynx moist, no oral exudates, nose normal. [] Eyes: PERRLA, EOMI, conjunctiva normal, no discharge. [] Neck: Normal range of motion, no tenderness, supple, no stridor. [] Cardiovascular: Heart rate regular rhythm, no murmur [] Lungs & Thorax: Bilateral breath sounds diminished [] Abdomen: Bowel sounds normal, soft, no tenderness, no masses, no pulsatile masses. [] Skin: Warm, dry, no erythema, no rash. [] Back: No tenderness, no CVA tenderness. [] Extremities: No tenderness, no cyanosis, no clubbing, ROM intact, no edema. [] Neurologic: Alert and oriented X 3, normal motor function, normal sensory function, no focal deficits noted. [] Psychologic: Affect normal, judgement normal, mood normal. [] Current Patient Data: Labs: Laboratory Tests Test 12/01/21 04:15 White Blood Count 5.4 x10^3/uL (4.0-11.0) Red Blood Count 4.04 x10^6/uL (3.50-5.40) Hemoglobin 11.3 g/dL (12.0-15.5) L Hematocrit 35.0 % (36.0-47.0) L Mean Corpuscular Volume 87 fL (79-100) Mean Corpuscular Hemoglobin 28 pg (25-35) Mean Corpuscular Hemoglobin Concent 32 g/dL (31-37) Red Cell Distribution Width 14.7 % (11.5-14.5) H Platelet Count 208 x10^3/uL (140-400) Neutrophils (%) (Auto) 78 % (31-73) H Lymphocytes (%) (Auto) 15 % (24-48) L Monocytes (%) (Auto) 6 % (0-9) Eosinophils (%) (Auto) 0 % (0-3) Basophils (%) (Auto) 1 % (0-3) Neutrophils # (Auto) 4.2 x10^3uL (1.8-7.7) Lymphocytes # (Auto) 0.8 x10^3/uL (1.0-4.8) L Monocytes # (Auto) 0.3 x10^3/uL (0.0-1.1) Eosinophils # (Auto) 0.0 x10^3/uL (0.0-0.7) Basophils # (Auto) 0.0 x10^3/uL (0.0-0.2) Sodium Level 136 mmol/L (136-145) Potassium Level 3.9 mmol/L (3.5-5.1) Chloride Level 100 mmol/L (98-107) Carbon Dioxide Level 25 mmol/L (21-32) Anion Gap 11 (6-14) Blood Urea Nitrogen 15 mg/dL (7-20) Creatinine 0.9 mg/dL (0.6-1.0) Estimated GFR (Cockcroft-Gault) 66.5 BUN/Creatinine Ratio 17 (6-20) Glucose Level 92 mg/dL (70-99) Calcium Level 8.4 mg/dL (8.5-10.1) L Total Bilirubin Pending Aspartate Amino Transferase (AST) Pending Alanine Aminotransferase (ALT) Pending Alkaline Phosphatase Pending Total Protein Pending Albumin Pending Albumin/Globulin Ratio Pending Vital Signs: Vital Signs Date Time Temp Pulse Resp B/P (MAP) Pulse Ox O2 Delivery O2 Flow Rate FiO2 12/01/21 03:00 100.3 101 22 120/77 (91) 91 Room Air EKG: EKG: [] Radiology/Procedures: Radiology/Procedures: [] Heart Score: C/O Chest Pain: N/A Risk Factors: Risk Factors: DM, Current or recent (<one month) smoker, HTN, HLP, family history of CAD, obesity. Risk Scores: Score 0 - 3: 2.5% MACE over next 6 weeks - Discharge Home Score 4 - 6: 20.3% MACE over next 6 weeks - Admit for Clinical Observation Score 7 - 10: 72.7% MACE over next 6 weeks - Early Invasive Strategies Course & Med Decision Making: Course & Med Decision Making Pertinent Labs and Imaging studies reviewed. (See chart for details) The patient's labs are essentially unremarkable. We have swabbed her for COVID- 19 and influenza. The results are pending and the patient will be informed when the are available. Her chest x-ray suggests right-sided pneumonia. I will treat her with Rocephin and azithromycin in the emergency room. She is able to maintain an oxygen saturation of at least 92% in the ER. I will treat her with Decadron in the ER. Her rapid Covid is negative. PCR is pending. She is stable for discharge at this time. [] Dragon Disclaimer: Dragon Disclaimer: This electronic medical record was generated, in whole or in part, using a voice recognition dictation system. Departure Departure: Impression: Primary Impression: Pneumonia Disposition: HOME / SELF CARE / HOMELESS Condition: STABLE Referrals: MERCEDEZ CONNELLY (PCP) Patient Instructions: Pneumonia, Adult, [id number] Scripts Azithromycin (AZITHROMYCIN TABLET) 250 Mg Tablet 250 MG PO DAILY for ANTI-BIOTIC for 4 Days, #4 TAB 0 Refills Prov: YE BARNETT DO 12/01/21 YE BARNETT DO Dec 01, 2021 04:53
[2021-12-01 05:04] LABS: INFLUENZA A PATIENT NEGATIVE (NEGATIVE); INFLUENZA B PATIENT NEGATIVE (NEGATIVE)
[2021-12-01] MEDS ORDERED: AZIT250T6 PO (05:26)
[2021-12-01] MEDS ORDERED: DEXAMETHASONE SOD PHOS 10 MG/ML VIAL. IVP ONE (05:30)
[2021-12-01] MEDS ORDERED: AZITHROMYCIN 250 MG TABLET. PO ONE (05:30)
[2021-12-01] MEDS ORDERED: IV NORMAL SALINE 50ML 50 ML ONE (05:49)
[2021-12-01] MEDS ORDERED: cefTRIAXone SODIUM 1 GM VIAL ONE (05:49)
== END 2021-12-01 06:10 | disposition home or self-care (01) ==
LOC: ER 02:57
DX: J18.9 Pneumonia, unspecified organism (principal); Z20.822 Contact with and (suspected) exposure to COVID-19; E11.9 Type 2 diabetes mellitus without complications; E78.00 Pure hypercholesterolemia, unspecified; I10 Essential (primary) hypertension; Z91.041 Radiographic dye allergy status; Z88.1 Allergy status to other antibiotic agents
CPT/HCPCS: 71045; 80053; 85025; 87426; 87804; 96365; 96375; 99284; C9803; J0696; J1100; J2405; U0003

== ENCOUNTER 2021-12-06 08:49 | Emergency (ER) | payer SELFPAY ==
[~2021-12-06] VITALS: Ht 167.6 cm; Wt 173.6 kg
[~2021-12-06 08:49] MED LIST changes: +ATOR20TA58 PO; +AZIT250T6 PO; +CHOL10004 PO; +DULA3PEN SQ; +GLIM4TAB8 PO; +LOSA100T14 PO; +MELO15TA23 PO; +PIOG30TA41 PO; +SERT50TA PO
--- NOTE | 2021-12-06 09:24 | PHYS DOC ---
Past History Past Medical History: Diabetes, High Cholesterol, Hypertension, Other Additional Past Medical Histor: osteo-Lizzie imperfecta; hypocalcemia Past Surgical History: Cholecystectomy, Hysterectomy, Tonsillectomy Smoking: Non-smoker Alcohol Use: None Drug Use: None Adult General Chief Complaint Chief Complaint: SHORTNESS OF BREATH HPI HPI Patient is a 51-year-old female presenting for cough. She was recently seen and evaluated at our facility 12/01/2021 and diagnosed with pneumonia based on chest x-ray. She was given azithromycin and has been taking this since discharge. Nonetheless, she lives at homeless skilled nursing and states that her cough has been bothersome ever since symptom onset 7 days prior. Reports it was initially productive but since taking the antibiotics this is turned into a nonproductive cough. She subsequently presents for evaluation of this. No fever or other concerning signs or symptoms reported Review of Systems Review of Systems Fourteen body systems of review of systems have been reviewed. See HPI for pertinent positives and negative responses, other louis all other systems are negative, non-pertinent or non-contributory Allergies Allergies Allergies Coded Allergies Type Severity Reaction Last Updated Verified Iodinated Contrast Media Allergy Intermediate 12/01/21 Yes Iodine and Iodide Containing Produc Allergy Intermediate 12/01/21 Yes oseltamivir Allergy Intermediate 12/01/21 Yes Physical Exam Physical Exam Constitutional: Well developed, well nourished and morbidly obese, no acute distress, non-toxic appearance. HENT: Normocephalic, atraumatic, bilateral external ears normal, oropharynx moist, no oral exudates, nose normal. Eyes: PERRLA, EOMI, conjunctiva normal, no discharge. Neck: Normal range of motion, no tenderness, supple, no stridor. Cardiovascular: Heart rate regular, sinus rhythm, no murmurs rubs or gallops Lungs & Thorax: Bilateral breath sounds clear to auscultation Abdomen: Bowel sounds normal, soft and protuberant, no tenderness, no masses, no pulsatile masses. Nonsurgical abdomen, no peritoneal signs Skin: Warm, dry, no erythema, no rash. Back: No tenderness, no CVA tenderness. Extremities: No tenderness, no cyanosis, no clubbing, ROM intact, no edema. Neurologic: Alert and oriented X 3, grossly normal motor & sensory function, no focal deficits noted. Psychologic: Affect normal, judgement normal, mood normal. Current Patient Data Vital Signs Vital Signs Date Time Temp Pulse Resp B/P (MAP) Pulse Ox O2 Delivery O2 Flow Rate FiO2 12/06/21 09:02 97.6 96 24 165/82 (109) 97 Room Air EKG EKG [] Radiology/Procedures Radiology/Procedures [] Heart Score C/O Chest Pain: No Risk Factors: Risk Factors: DM, Current or recent (<one month) smoker, HTN, HLP, family history of CAD, obesity. Risk Scores: Risk Factors: DM, Current or recent (<one month) smoker, HTN, HLP, family history of CAD, obesity. Course & Med Decision Making Course & Med Decision Making ABCs unremarkable HPI and physical exam nonconcerning for any emergent or surgical issues Patient complaining of nonproductive cough, she is currently on antibiotic therapy and hemodynamically stable. I disclosed this is a natural finding and will likely persist for up to 6 weeks after no pneumonia infection I discussed potential for further diagnostic work-up in ER setting but patient deferred stating she just was anxious and that the homeless skilled nursing made her come in for evaluation. Patient ultimately requesting discharge back home with continued antibiotic use and PCP follow-up advised Baljinder Disclaimer Baljinder Disclaimer This electronic medical record was generated, in whole or in part, using a voice recognition dictation system. Departure Departure: Impression: Primary Impression: Cough Disposition: 01 HOME / SELF CARE / HOMELESS Condition: STABLE Referrals: ISI RAZA APRN (PCP) Patient Instructions: Cough, Adult Additional Instructions: As discussed prior to ER departure, your vitals and physical exam were nonconcerning for any emergent or surgical issues. As disclosed, you likely have a cough which is exacerbated by your runny nose and postnasal drip. This, in conjunction with fact that you were recently diagnosed and actively being treated for pneumonia as source of cough which will likely persist for 1 to 6 weeks after such pulmonary illness. Please continue supportive care practices and follow-up with your outpatient primary care physician for follow-up. If any concerning signs or symptoms present prior to outpatient follow-up do not hesitate to come back for repeat evaluation. Is a pleasure take care of you and I wish you the best going forward BELGICA ATKINSON DO Dec 06, 2021 09:24
[2021-12-06 09:38] VITALS: BP 152/78
== END 2021-12-06 09:49 | disposition home or self-care (01) ==
LOC: ER 08:49
DX: R05.9 Cough, unspecified (principal); E11.9 Type 2 diabetes mellitus without complications; E78.00 Pure hypercholesterolemia, unspecified; I10 Essential (primary) hypertension; Z59.00 Homelessness unspecified; Z91.041 Radiographic dye allergy status; Z88.8 Allergy status to other drugs, medicaments and biological substances
CPT/HCPCS: 99281; 99282

== ENCOUNTER 2022-02-11 07:23 | Emergency (ER) | payer SELFPAY ==
[~2022-02-11] VITALS: Ht 167.6 cm; Wt 173.6 kg
[2022-02-11 07:38] VITALS: BP 142/56
[2022-02-11] MEDS ORDERED: FLUORESCEIN 1MG EYE STRIP. OS ONE (07:45)
[2022-02-11] MEDS ORDERED: TETRACAINE 0.5% OPHTH SOLUTION 4ML BOTTLE. OS ONE (07:45)
[2022-02-11] MEDS ORDERED: ERYT1OIN6 OP (08:08)
--- NOTE | 2022-02-11 08:08 | PHYS DOC ---
Past History Past Medical History: Diabetes, High Cholesterol, Hypertension, Other Additional Past Medical Histor: osteo-Lizzie imperfecta; hypocalcemia Past Surgical History: Cholecystectomy, Hysterectomy, Tonsillectomy Smoking: Non-smoker Alcohol Use: None Drug Use: None General Adult EDM: Chief Complaint: EYE PROBLEMS HPI: HPI: 51-year-old female presents via EMS with swollen left eye. The patient started to have swelling yesterday and the feeling that there was something in her eye. She cannot find anything. She is been using warm compress with some relief. Overnight, her upper eyelids swelled significantly and she still has the feeling of foreign object in her eye. She decided to come into the emergency room. She has no other complaints this time. Denies fever or chills. Review of Systems: Review of Systems: Constitutional: Denies fever or chills Eyes: Swollen and irritated left eye HENT: Denies nasal congestion or sore throat Respiratory: Denies cough or shortness of breath Cardiovascular: Denies chest pain or edema GI: Denies abdominal pain, nausea, vomiting, bloody stools or diarrhea : Denies dysuria Musculoskeletal: Denies back pain or joint pain Integument: Denies rash Neurologic: Denies headache, focal weakness or sensory changes Endocrine: Denies polyuria or polydipsia Lymphatic: Denies swollen glands Psychiatric: Denies depression or anxiety Current Medications: Current Meds: Current Medications Medications (Trade) Dose Ordered Sig/Nichole Start Time Stop Time Status Last Admin Dose Admin Fluorescein Sodium (Ful-Magda 1mg) 1 strip 1X ONCE 02/11/22 07:45 02/11/22 07:59 DC 02/11/22 07:46 1 STRIP Tetracaine HCl (Tetracaine) 1 drop 1X ONCE 02/11/22 07:45 02/11/22 07:59 DC 02/11/22 07:46 1 DROP Allergies: Allergies: Allergies Coded Allergies Type Severity Reaction Last Updated Verified Iodinated Contrast Media Allergy Intermediate 02/11/22 Yes Iodine and Iodide Containing Produc Allergy Intermediate 12/01/21 Yes oseltamivir Allergy Intermediate 02/11/22 Yes Physical Exam: PE: Constitutional: Well developed, well nourished, no acute distress, non-toxic appearance. [] HENT: Normocephalic, atraumatic, bilateral external ears normal, oropharynx moist, no oral exudates, nose normal. [] Eyes: PERRLA, EOMI, conjunctiva erythematous on the left with yellowish discharge. Fluorescein exam showed pickler helper in the discharge and an eyelash at the 10 o'clock position. [] Neck: Normal range of motion, no tenderness, supple, no stridor. [] Cardiovascular: Heart rate regular rhythm, no murmur [] Lungs & Thorax: Bilateral breath sounds clear to auscultation [] Abdomen: Bowel sounds normal, soft, no tenderness, no masses, no pulsatile masses. [] Skin: Warm, dry, no erythema, no rash. [] Back: No tenderness, no CVA tenderness. [] Extremities: No tenderness, no cyanosis, no clubbing, ROM intact, no edema. [] Neurologic: Alert and oriented X 3, normal motor function, normal sensory function, no focal deficits noted. [] Psychologic: Affect normal, judgement normal, mood normal. [] Current Patient Data: Vital Signs: Vital Signs Date Time Temp Pulse Resp B/P (MAP) Pulse Ox O2 Delivery O2 Flow Rate FiO2 02/11/22 07:38 97.9 86 20 142/56 (84) 96 Room Air EKG: EKG: [] Radiology/Procedures: Radiology/Procedures: [] Heart Score: C/O Chest Pain: N/A Risk Factors: Risk Factors: DM, Current or recent (<one month) smoker, HTN, HLP, family history of CAD, obesity. Risk Scores: Score 0 - 3: 2.5% MACE over next 6 weeks - Discharge Home Score 4 - 6: 20.3% MACE over next 6 weeks - Admit for Clinical Observation Score 7 - 10: 72.7% MACE over next 6 weeks - Early Invasive Strategies Course & Med Decision Making: Course & Med Decision Making Pertinent Labs and Imaging studies reviewed. (See chart for details) I performed a fluorescein exam and did find an eyelash in the 10 o'clock position of the left eye. I was able to remove the foreign object with a sterile Q-tip after numbing the eye with tetracaine drops. Eyelid is significantly swollen. There is some erythema of the conjunctive and thicker discharge. I will treat her with erythromycin ointment. She is stable for discharge at this time. [] Dragon Disclaimer: Dragon Disclaimer: This electronic medical record was generated, in whole or in part, using a voice recognition dictation system. Departure Departure: Impression: Primary Impression: Foreign body of left eye Qualified Codes: T15.92XA - Foreign body on external eye, part unspecified, left eye, initial encounter Additional Impression: Conjunctivitis Qualified Codes: H10.32 - Unspecified acute conjunctivitis, left eye Disposition: HOME / SELF CARE / HOMELESS Condition: STABLE Referrals: ISI RAZA APRN (PCP) Patient Instructions: Bacterial Conjunctivitis, [id number] Scripts Erythromycin Base (Erythromycin) 1 Gm Oint...g. 1 GM OP TID for bacterial conjunctivitis for 7 Days, #1 MISC Prov: YE BARNETT DO 02/11/22 YE BARNETT DO Feb 11, 2022 08:08
== END 2022-02-11 08:11 | disposition home or self-care (01) ==
LOC: ER 07:23
DX: T15.92XA Foreign body on external eye, part unspecified, left eye, initial encounter (principal); E11.9 Type 2 diabetes mellitus without complications; E78.00 Pure hypercholesterolemia, unspecified; I10 Essential (primary) hypertension; Z91.041 Radiographic dye allergy status; Z88.8 Allergy status to other drugs, medicaments and biological substances; X58.XXXA Exposure to other specified factors, initial encounter; Y93.89 Activity, other specified; Y92.89 Other specified places as the place of occurrence of the external cause; Y99.8 Other external cause status
CPT/HCPCS: 65205; 99283; 99284

== ENCOUNTER 2022-03-25 11:20 | Emergency (ER) | payer MEDICAID ==
[~2022-03-25] VITALS: Ht 167.6 cm; Wt 173.6 kg
[~2022-03-25 11:20] MED LIST changes: +ERYT1OIN6 OP
[2022-03-25 11:27] VITALS: BP 118/69
--- NOTE | 2022-03-25 12:06 | PHYS DOC ---
Past History Past Medical History: Diabetes, High Cholesterol, Hypertension, Other Additional Past Medical Histor: osteo-Lizzie imperfecta; hypocalcemia Past Surgical History: Cholecystectomy, Hysterectomy, Tonsillectomy Smoking: Non-smoker Alcohol Use: None Drug Use: None General Adult EDM: Chief Complaint: HYPOTENSION HPI: HPI: Patient is a 51-year-old female coming in for low blood pressure readings. Patient went to her primary care and they took her blood pressure was 90 over 70s. Patient has a history of hypertension but denies any recent medication changes. Patient states she occasionally is felt lightheaded and had headaches. Patient is also complaining of lower abdominal pain after a fall a few weeks ago. Patient states she was on the toilet when she was there for too long and her legs went numb and she fell forward. Patient also complaining of draining from underneath her pannus, patient states she has had a problem with poor healing of her hysterectomy incision that was performed 10 years ago. Review of Systems: Review of Systems: All other systems within normal limits except for as noted in the HPI Allergies: Allergies: Allergies Coded Allergies Type Severity Reaction Last Updated Verified Iodinated Contrast Media Allergy Intermediate 02/11/22 Yes Iodine and Iodide Containing Produc Allergy Intermediate 12/01/21 Yes oseltamivir Allergy Intermediate 02/11/22 Yes Physical Exam: PE: Constitutional: Well developed, well nourished, no acute distress, non-toxic appearance. Elevated BMI [] HENT: Normocephalic, atraumatic, bilateral external ears normal, nose normal. [] Eyes: PERRLA, conjunctiva normal, no discharge. [] Neck: No rigidity, supple, no stridor. [] Cardiovascular: Regular rate and rhythm, brisk cap refill [] Lungs & Thorax: Non labored symmetric respirations, no tachypnea or respiratory distress [] Abdomen: Soft, nondistended, Skin: Warm, dry, no erythema, no rash. [] Back: Unremarkable Extremities: No deformities, range of motion grossly intact, no lower extremity edema [] Neurologic: Alert and oriented X 3, no focal deficits noted. [] Psychologic: Affect normal, judgement normal, mood normal. [] Current Patient Data: Vital Signs: Vital Signs Date Time Temp Pulse Resp B/P (MAP) Pulse Ox O2 Delivery O2 Flow Rate FiO2 03/25/22 11:27 97.8 94 18 118/69 (85 97 EKG: EKG: [] Radiology/Procedures: Radiology/Procedures: [] Heart Score: C/O Chest Pain: No Risk Factors: Risk Factors: DM, Current or recent (<one month) smoker, HTN, HLP, family history of CAD, obesity. Risk Scores: Score 0 - 3: 2.5% MACE over next 6 weeks - Discharge Home Score 4 - 6: 20.3% MACE over next 6 weeks - Admit for Clinical Observation Score 7 - 10: 72.7% MACE over next 6 weeks - Early Invasive Strategies Course & Med Decision Making: Course & Med Decision Making Pertinent Labs and Imaging studies reviewed. (See chart for details) [] Dragon Disclaimer: Dragon Disclaimer: This electronic medical record was generated, in whole or in part, using a voice recognition dictation system. Departure Departure: Impression: Primary Impression: UTI (urinary tract infection) Additional Impression: Skin breakdown Disposition: HOME / SELF CARE / HOMELESS Condition: STABLE Referrals: ISI RAZA APRN (PCP) Patient Instructions: How to Take Your Blood Pressure, [id number] Additional Instructions: Call to schedule appointment if you need assistance with wound care [facility] [address], [address] [place] [address] Scripts Cephalexin (CEPHALEXIN) 500 Mg Tablet 1 TAB PO TID for antibiotic for 7 Days, #21 TAB Prov: ORALIA NEWSOME MD 03/25/22 ORALIA NEWSOME MD Mar 25, 2022 12:06
[2022-03-25 13:07] LABS: BASO # 0.1 x10^3/uL (0.0-0.2); BASO % 1 % (0-3); EOS # 0.2 x10^3/uL (0.0-0.7); EOS % 3 % (0-3); HEMOGLOBIN 10.5 g/dL (12.0-15.5); LYMPH # 2.1 x10^3/uL (1.0-4.8); LYMPH % 25 % (24-48); MEAN CORPUSCULAR HEMOGLOBIN 27 pg (25-35); MEAN CORPUSCULAR HGB CONC 32 g/dL (31-37); MEAN CORPUSCULAR VOLUME 86 fL (79-100); MONO # 0.6 x10^3/uL (0.0-1.1); MONO % 7 % (0-9); NEUT # 5.3 x10^3uL (1.8-7.7); NEUT % 64 % (31-73); PLATELET COUNT 350 x10^3/uL (140-400); RED BLOOD COUNT 3.86 x10^6/uL (3.50-5.40); RED CELL DISTRIBUTION WIDTH 16.1 % (11.5-14.5); WHITE BLOOD COUNT 8.3 x10^3/uL (4.0-11.0)
[2022-03-25 13:17] LABS: CALCIUM 8.6 mg/dL (8.5-10.1); GFR 58.9
[2022-03-25 13:32] LABS: ALBUMIN 3.1 g/dL (3.4-5.0); ALBUMIN/GLOBULIN RATIO 0.7 (1.0-1.7); MAGNESIUM 2.2 mg/dL (1.8-2.4); PHOSPHORUS 3.6 mg/dL (2.6-4.7); TOTAL BILIRUBIN 0.6 mg/dL (0.2-1.0); TOTAL PROTEIN 7.7 g/dL (6.4-8.2)
[2022-03-25 14:51] LABS: CLARITY,URINE HAZY; COLOR,URINE YELLOW; GLUCOSE,URINE NEG (NEG)
[2022-03-25 14:52] LABS: BACTERIA,URINE FEW /HPF (0-FEW); NITRITE,URINE NEG (NEG); SQUAMOUS EPITHELIAL CELL,UR MANY /LPF; UROBILINOGEN,URINE 0.2 mg/dL (0.2 mg/dL)
[2022-03-25] MEDS ORDERED: CEPH500T PO (15:03)
--- NOTE | 2022-03-26 19:12 | EKG ---
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
== END 2022-03-25 15:15 | disposition home or self-care (01) ==
LOC: ER 11:20
DX: N39.0 Urinary tract infection, site not specified (principal); L98.8 Other specified disorders of the skin and subcutaneous tissue; E11.9 Type 2 diabetes mellitus without complications; E78.00 Pure hypercholesterolemia, unspecified; I10 Essential (primary) hypertension; Z91.041 Radiographic dye allergy status; Z88.8 Allergy status to other drugs, medicaments and biological substances
CPT/HCPCS: 36415; 80053; 81001; 83735; 83880; 84100; 84484; 85025; 87086; 93005; 99284